=== PATIENT | female | born 1975 | race Caucasian/White ===

== ENCOUNTER 2021-04-05 12:39 | Inpatient (IN) | payer OTHER ==
[~2021-04-05] VITALS: Ht 162.6 cm; Wt 108.9 kg
[2021-04-05 13:26] LABS: BASOPHIL 0.2 % (0-2); EOSINOPHIL 0 % (0-5); HCT 45.3 % (37.0-47.0); HGB 14.6 g/dl (12.5-16.0); LYMPHOCYTE 33.3 % (15-48); MCH 28.7 pg (25.0-31.0); MCHC 32.2 g/dL (32.0-36.0); MONOCYTE 8.9 % (0-12); MPV 9.5 fL (6.0-9.5); NEUTROPHIL 57.4 % (41-80); NRBC 0; PLT 229 K/uL (150-400); RBC 5.09 M/uL (4.20-5.40); RDW 13.9 % (11.5-14.0)
[2021-04-05 13:30] LABS: INR 1.03 (0.9-1.2); PROTHROMBIN TIME 12.9 SECONDS (11.8-13.4)
[2021-04-05 13:32] LABS: D-DIMER 1.57 ug/mLFEU (0.00-0.41)
[2021-04-05 13:48] LABS: PRO-BNP 18 pg/mL (<125)
[2021-04-05 13:52] LABS: ALBUMIN 2.8 g/dL (3.4-5.0); BILIRUBIN - TOTAL 0.7 mg/dL (0.2-1.0); BUN/CREAT RATIO (CALC) 19.7 RATIO; C-REACTIVE PROTEIN 6.2 mg/dL (<=0.90); CREATININE 0.66 mg/dL (0.51-0.95); GLOBULIN (CALCULATION) 4.7 g/dL; MAGNESIUM 2.1 mg/dL (1.8-2.4); POTASSIUM 3.4 mmol/L (3.5-5.1); TOTAL PROTEIN 7.5 g/dL (6.4-8.2)
[2021-04-05 14:05] LABS: LACTIC ACID 1.4 mmol/L (0.4-1.9)
[2021-04-06 06:45] LABS: C-REACTIVE PROTEIN 4.3 mg/dL (<=0.90)
[2021-04-07] MEDS ORDERED: DEXAMETHASONE 2M2 MG PO (08:00)
--- NOTE | 2021-04-07 13:18 | NUR ---
04/07/21 A referral was made to [facility] for home 02. Patient was informed that a concentrator will be delivered to the home. Pt's telephone # was verified.
== END 2021-04-07 15:57 | disposition home or self-care (01) | DRG 177 ==
LOC: FER 12:39 → FMS 18:19
PROVIDERS: Emergency Medicine; ADMIT Allergy & Immunology Allergy
PROC: XW033E5 Introduction of Remdesivir Anti-infective into Peripheral Vein, Percutaneous Approach, New Technology Group 5 (ICD-10-PCS; principal; 2021-04-05)
PROC: 8E0ZXY6 Isolation (ICD-10-PCS; 2021-04-05)
DX: U07.1 COVID-19 (principal); J96.01 Acute respiratory failure with hypoxia; J12.82 Pneumonia due to coronavirus disease 2019; Z90.710 Acquired absence of both cervix and uterus; Z87.442 Personal history of urinary calculi
CPT/HCPCS: 36415; 36600; 71275; 80053; 82728; 82803; 83605; 83615; 83735; 83880; 84145; 84484; 85025; 85379; 85610; 86140; 93005; 94010; 94760; C9399; J1100; J1650; J2405; J7050; Q9967; U0002